=== PATIENT | male | born 1990 | race Caucasian/White ===

== ENCOUNTER 2016-11-08 07:25 | Emergency (ER) | payer BC ==
[~2016-11-08] VITALS: Ht 175.3 cm; Wt 105.4 kg
[~2016-11-08 07:25] MED LIST: ONDA1TAB16 PO; PERC5TAB12 PO
[2016-11-08 07:28] VITALS: BP 131/87; PULSE 56; RESP 16; TEMP 98.8; O2SAT 97
[2016-11-08] MEDS ORDERED: BACT800T5 PO (07:47)
--- NOTE | 2016-11-08 07:47 | PD ---
HPI Chief Complaint: Lump, Cyst, Hernia Time Seen by Provider: 07:44 Travel History International Travel<30 days: No Contact w/Intl Traveler<30days: No Traveled to known affect area: No History of Present Illness HPI 26-year-old male complains of a lump on the left axilla. Patient states that he started to notice a lump yesterday. Patient states that he squeezed some pus out of it this morning. Patient denies any other problem. Patient states that he has some burning pain at the area. Patient denies any pain radiation. Patient denies any fever chills. PFSH Past Medical History Cerebrovascular Accident: No Diabetes: No Diminished Hearing: No Musculoskeletal: Yes ("HERNIATED DISC NECK") Immunizations Current: Yes Myocardial Infarction: No Tetanus Vaccination: < 5 Years Influenza Vaccination: No ?: Not Past Surgical History Oral Surgery: Yes Other Surgery: Yes (sinus surgery) Social History Alcohol Use: No Tobacco Use: No Substance Use: No Allergies-Medications (Allergen,Severity, Reaction): Coded Allergies: Bee Sting (Verified Allergy, Severe, HIVES, 11/08/16) Reported Meds & Prescriptions Reported Meds & Active Scripts Active No Active Prescriptions or Reported Medications Review of Systems General / Constitutional: No: Fever Eyes: No: Visual changes HENT: No: Headaches Cardiovascular: No: Chest Pain or Discomfort Respiratory: No: Shortness of Breath Gastrointestinal: No: Abdominal Pain Genitourinary: No: Dysuria Musculoskeletal: No: Pain Skin: No Rash Neurologic: No: Weakness Psychiatric: No: Depression Endocrine: No: Polydipsia Hematologic/Lymphatic: No: Easy Bruising Physical Exam Narrative GENERAL: Well-nourished, well-developed patient. SKIN: Focused skin assessment warm/dry. HEAD: Normocephalic. EYES: No scleral icterus. No injection or drainage. NECK: Supple, trachea midline. No JVD or lymphadenopathy. CARDIOVASCULAR: Regular rate and rhythm without murmurs, gallops, or rubs. RESPIRATORY: Breath sounds equal bilaterally. No accessory muscle use. GASTROINTESTINAL: Abdomen soft, non-tender, nondistended. MUSCULOSKELETAL: No cyanosis, or edema. BACK: Nontender without obvious deformity. No CVA tenderness. Patient has a small papular lesion left axilla area. Mild redness associated with it. No induration and no discharge. Data Data Last Documented VS Vital Signs Date Time Temp Pulse Resp B/P Pulse Ox O2 Delivery O2 Flow Rate FiO2 11/08/16 07:28 98.8 56 16 131/87 97 MDM Medical Decision Making Medical Screen Exam Complete: Yes Emergency Medical Condition: Yes Differential Diagnosis Differential diagnosis including folliculitis, carbuncles, cellulitis, abscess. Narrative Course 26-year-old male with infected papular lesion left axilla. Diagnosis Primary Impression: Folliculitis Patient Instructions: General Instructions Additional Instructions: Bactrim DS as directed. Follow-up with personal physician. Return if worse. Med/Other Pt SpecificInfo: Prescription(s) given Scripts Sulfamethoxazole-Trimethoprim (Bactrim DS)800-160 Mg Tab1 Tab PO BID #14 TAB Prov:Merrick Guadalupe MD 11/08/16 Disposition: 01 DISCHARGE HOME Condition: Stable Merrick Guadalupe MD Nov 08, 2016 07:47
== END 2016-11-08 07:56 | disposition home or self-care (01) ==
LOC: PHED 07:25
DX: L73.9 Follicular disorder, unspecified (principal)
CPT/HCPCS: 99282

== ENCOUNTER 2017-01-12 09:20 | Emergency (ER) | payer BC ==
[~2017-01-12] VITALS: Ht 175.3 cm; Wt 106.0 kg
[~2017-01-12 09:20] MED LIST changes: +BACT800T5 PO; -ONDA1TAB16 PO; -PERC5TAB12 PO
[2017-01-12 09:26] VITALS: BP 152/92; PULSE 55; RESP 16; TEMP 98; O2SAT 99
[2017-01-12 09:47] LABS: BLOOD, URINE NEG (NEG); GLUCOSE,URINE NEG (NEG); KETONE, URINE NEG (NEG); NITRITE,URINE NEG (NEG); PH, URINE 5.5 (5.0-8.5)
[2017-01-12 09:58] LABS: COMMENT (UR) CULT NOT INDICATED; CULTURE IF INDICATED CULT NOT INDICATED; METHOD OF COLLECTION CLEAN CATCH; RBC, URINE 0-3 /hpf (0-3); SQUAMOUS EPITHELIAL CELL URINE 0-5 /hpf (0-5); URINE COLOR YELLOW (YELLW/STRAW)
[2017-01-12] MEDS ORDERED: SODIUM CHLOR 0.9% 1000 ML INJ 1,000 ML IV SCH (10:43)
[2017-01-12] MEDS ORDERED: ONDANSETRON HCL 4 MG/2 ML VIAL IVP ONE (10:45)
--- NOTE | 2017-01-12 10:47 | PD ---
HPI Chief Complaint: Abdominal Pain Time Seen by Provider: 10:38 Travel History International Travel<30 days: No Contact w/Intl Traveler<30days: No Traveled to known affect area: No History of Present Illness HPI 26-year-old male complains of right earache and abdominal pain with nausea. Patient states that he has congestion for the past several days. Patient started having right ear pain today and abdominal cramping with nausea today. Patient denies any vomiting or diarrhea. Patient denies any fever chills. Patient denies any chest pain or shortness of breath. Patient denies any dysuria or frequency. PFSH Past Medical History Hx Anticoagulant Therapy: No Cerebrovascular Accident: No Diabetes: No Diminished Hearing: No Musculoskeletal: Yes ("HERNIATED DISC NECK") Immunizations Current: Yes Myocardial Infarction: No Influenza Vaccination: No Past Surgical History Oral Surgery: Yes Other Surgery: Yes (sinus surgery) Social History Alcohol Use: No Tobacco Use: No Substance Use: No Allergies-Medications (Allergen,Severity, Reaction): Coded Allergies: Bee Sting (Verified Allergy, Severe, HIVES, 01/12/17) Reported Meds & Prescriptions Reported Meds & Active Scripts Active Review of Systems General / Constitutional: No: Fever Eyes: No: Visual changes HENT: Positive: Congestion, Earache, No: Headaches Cardiovascular: No: Chest Pain or Discomfort Respiratory: No: Shortness of Breath Gastrointestinal: Positive: Nausea, Abdominal Pain Genitourinary: No: Dysuria Musculoskeletal: No: Pain Skin: No Rash Neurologic: No: Weakness Psychiatric: No: Depression Endocrine: No: Polydipsia Hematologic/Lymphatic: No: Easy Bruising Physical Exam Narrative GENERAL: Well-nourished, well-developed patient. SKIN: Focused skin assessment warm/dry. HEAD: Normocephalic. EYES: No scleral icterus. No injection or drainage. TM: Patient has effusion behind the right TM. Left TM is clear. NECK: Supple, trachea midline. No JVD or lymphadenopathy. No meningismus CARDIOVASCULAR: Regular rate and rhythm without murmurs, gallops, or rubs. RESPIRATORY: Breath sounds equal bilaterally. No accessory muscle use. GASTROINTESTINAL: Abdomen soft, nondistended. Patient has mild diffuse tenderness over the abdomen. No rebound tenderness. No mass. MUSCULOSKELETAL: No cyanosis, or edema. BACK: Nontender without obvious deformity. No CVA tenderness. Neurologic exam normal. Data Data Last Documented VS Vital Signs Date Time Temp Pulse Resp B/P Pulse Ox O2 Delivery O2 Flow Rate FiO2 01/12/17 11:02 53 16 141/81 97 Room Air 01/12/17 09:26 98.0 Orders Urinalysis - C+S If Indicated (01/12/17 09:26) Complete Blood Count With Diff (01/12/17 10:43) Comprehensive Metabolic Panel (01/12/17 10:43) Lipase (01/12/17 10:43) Iv Access Insert/Monitor (01/12/17 10:43) Ecg Monitoring (01/12/17 10:43) Oximetry (01/12/17 10:43) Ondansetron Inj (Zofran Inj) (01/12/17 10:45) Sodium Chlor 0.9% 1000 Ml Inj (Ns 1000 M (01/12/17 10:43) Ketorolac Inj (Toradol Inj) (01/12/17 11:00) Labs Laboratory Tests Test 01/12/17 01/12/17 09:30 10:50 Urine Collection Type CLEAN CATCH Urine Color YELLOW Urine Turbidity CLEAR Urine pH 5.5 Urine Specific [place] 1.019 Urine Protein NEG mg/dL Urine Glucose (UA) NEG mg/dL Urine Ketones NEG mg/dL Urine Occult Blood NEG Urine Nitrite NEG Urine Bilirubin NEG Urine Leukocyte Esterase NEG Urine RBC 0-3 /hpf Urine Squamous Epithelial 0-5 /hpf Cells Microscopic Urinalysis Comment CULT NOT INDICATED Urine Collection Time 09:30 White Blood Count 11.9 TH/MM3 Red Blood Count 5.00 MIL/MM3 Hemoglobin 14.8 GM/DL Hematocrit 44.7 % Mean Corpuscular Volume 89.3 FL Mean Corpuscular Hemoglobin 29.6 PG Mean Corpuscular Hemoglobin 33.1 % Concent Red Cell Distribution Width 13.4 % Platelet Count 224 TH/MM3 Mean Platelet Volume 9.6 FL Neutrophils (%) (Auto) 79.2 % Lymphocytes (%) (Auto) 12.5 % Monocytes (%) (Auto) 6.8 % Eosinophils (%) (Auto) 0.9 % Basophils (%) (Auto) 0.6 % Neutrophils # (Auto) 9.4 TH/MM3 Lymphocytes # (Auto) 1.5 TH/MM3 Monocytes # (Auto) 0.8 TH/MM3 Eosinophils # (Auto) 0.1 TH/MM3 Basophils # (Auto) 0.1 TH/MM3 CBC Comment DIFF FINAL Differential Comment Sodium Level 142 MEQ/L Potassium Level 4.0 MEQ/L Chloride Level 106 MEQ/L Carbon Dioxide Level 27.0 MEQ/L Anion Gap 9 MEQ/L Blood Urea Nitrogen 13 MG/DL Creatinine 1.10 MG/DL Estimat Glomerular Filtration 80 ML/MIN Rate Random Glucose 105 MG/DL Calcium Level 9.0 MG/DL Total Bilirubin 0.4 MG/DL Aspartate Amino Transf 14 U/L (AST/SGOT) Alanine Aminotransferase 29 U/L (ALT/SGPT) Alkaline Phosphatase 62 U/L Total Protein 7.6 GM/DL Albumin 4.1 GM/DL Lipase 136 U/L MDM Medical Decision Making Medical Screen Exam Complete: Yes Emergency Medical Condition: Yes Interpretation(s) 11:59 AM. CBC with WBC 11.9. 79 neutrophil. CMP within normal limit. UA is negative. Differential Diagnosis Differential diagnosis including otitis externa, otitis media, gastritis, PUD, pancreatitis, cholecystitis, colitis, UTI, pyelonephritis. Narrative Course 26-year-old male complains of right ear pain abdominal cramping with nausea. Normal saline solution 1 L IV bolus. Zofran 4 mg IV. Diagnosis Primary Impression: Gastritis Qualified Code: K29.00 - Acute gastritis without hemorrhage, unspecified gastritis type Additional Impression: Acute effusion of right ear Patient Instructions: General Instructions Med/Other Pt SpecificInfo: Prescription(s) given Scripts Ondansetron Odt (Zofran Odt)4 Mg Tab4 Mg SL Q6HR PRN (Nausea/Vomiting) #10 TAB Ref 0 Prov:Merrick Guadalupe MD 01/12/17 Prednisone 20 Mg Tab20 Mg PO BID #10 TAB Ref 0 Prov:Merrick Guadalupe MD 01/12/17 Dicyclomine (Bentyl)10 Mg Cap10 Mg PO TID PRN (PAIN SCALE 1 TO 10) #15 CAP Ref 0 Prov:Merrick Guadalupe MD 01/12/17 Pantoprazole (Protonix)20 Mg Tab20 Mg PO DAILY #30 TAB Prov:Merrick Guadalupe MD 01/12/17 Disposition: 01 DISCHARGE HOME Condition: Stable Merrick Guadalupe MD Jan 12, 2017 10:47
[2017-01-12 11:00] LABS: AUTOMATED NEUTROPHIL # 9.4 TH/MM3 (1.8-7.7); BASOPHIL # 0.1 TH/MM3 (0-0.2); BASOPHIL % 0.6 % (0.0-2.0); EOSINOPHIL # 0.1 TH/MM3 (0-0.4); EOSINOPHIL % 0.9 % (0.0-4.0); HEMATOCRIT 44.7 % (39.0-51.0); LYMPH % 12.5 % (9.0-44.0); LYMPHOCYTE # 1.5 TH/MM3 (1.0-4.8); MEAN CELL VOLUME 89.3 FL (80.0-100.0); MEAN CORPUSCULAR HEMOGLOBIN 29.6 PG (27.0-34.0); MEAN CORPUSCULAR HGB CONC 33.1 % (32.0-36.0); MONO % 6.8 % (0.0-8.0); NEUT % 79.2 % (16.0-70.0); PLATELET COUNT 224 TH/MM3 (150-450); RED CELL DISTRIBUTION WIDTH 13.4 % (11.6-17.2); WHITE BLOOD COUNT 11.9 TH/MM3 (4.0-11.0)
[2017-01-12] MEDS ORDERED: KETOROLAC TROMETHAMINE 30 MG/ML (IVP) VIAL IV PUSH ONE (11:00)
[2017-01-12 11:01] VITALS: RESP 16; O2SAT 97
[2017-01-12 11:02] VITALS: BP 141/81; PULSE 53; RESP 16; O2SAT 97
[2017-01-12 11:06] LABS: CHLORIDE 106 MEQ/L (98-107); SODIUM (NA) 142 MEQ/L (136-145)
[2017-01-12 11:07] LABS: HEMO FLAGS DIFF FINAL
[2017-01-12 11:10] LABS: ANION GAP 9 MEQ/L (5-15)
[2017-01-12 11:11] LABS: BLOOD UREA NITROGEN 13 MG/DL (7-18)
[2017-01-12 11:13] LABS: ALT (GPT) 29 U/L (12-78); AST (GOT) 14 U/L (15-37); GLOMERULAR FILTRATION RATE 80 ML/MIN (>89)
[2017-01-12 11:15] LABS: TOTAL BILIRUBIN ADULT 0.4 MG/DL (0.2-1.0)
[2017-01-12 11:16] LABS: ALKALINE PHOSPHATASE 62 U/L (45-117)
[2017-01-12] MEDS ORDERED: DICY10 PO (12:04)
[2017-01-12] MEDS ORDERED: PANT20 PO (12:04)
[2017-01-12] MEDS ORDERED: PRED20 PO (12:04)
[2017-01-12] MEDS ORDERED: ZOFR4TAB3 SL (12:04)
[2017-01-12 12:14] VITALS: BP 133/71; PULSE 61; RESP 16; O2SAT 96
== END 2017-01-12 12:23 | disposition home or self-care (01) ==
LOC: PHED 09:20
DX: K29.00 Acute gastritis without bleeding (principal)
CPT/HCPCS: 80053; 81001; 83690; 85025; 96361; 96374; 96375; 99284; J1885; J2405; J7030

== ENCOUNTER 2017-11-28 21:39 | Emergency (ER) | payer BC ==
[~2017-11-28] VITALS: Ht 177.8 cm; Wt 97.7 kg
[~2017-11-28 21:39] MED LIST changes: -BACT800T5 PO; +DICY10 PO; +PANT20 PO; +PRED20 PO; +ZOFR4TAB3 SL
[2017-11-28 21:42] VITALS: BP 134/62; PULSE 58; RESP 18; TEMP 97.7; O2SAT 99
[2017-11-28] MEDS ORDERED: AMOXICILLIN 875 MG TAB PO ONE (22:00)
[2017-11-28] MEDS ORDERED: KETOROLAC TROMETHAMINE 60 MG/2 ML (IM) VIAL IM ONE (22:00)
[2017-11-28] MEDS ORDERED: AMOX875T PO (22:06)
[2017-11-28] MEDS ORDERED: IBUP1TAB7 PO (22:06)
--- NOTE | 2017-11-28 22:07 | PD ---
HPI Chief Complaint: ENT Complaint Time Seen by Provider: 21:54 Travel History International Travel<30 days: No Contact w/Intl Traveler<30days: No Traveled to known affect area: No History of Present Illness HPI The patient is a 27-year-old male that complains of pain in the right TMJ/right ear for 4 days. He states he had dental work 2 months ago. He denies any ear drainage and is not tender on the right ear. His pain is a 7/10, sharp pain and associated with any chewing movements. If the patient does not chew he does not feel any pain. PFSH Past Medical History Medical History: Denies Significant Hx Hx Anticoagulant Therapy: No Cerebrovascular Accident: No Diabetes: No Diminished Hearing: No Musculoskeletal: Yes ("HERNIATED DISC NECK") Immunizations Current: Yes Myocardial Infarction: No Tetanus Vaccination: < 5 Years Influenza Vaccination: No Past Surgical History Oral Surgery: Yes Other Surgery: Yes (sinus surgery) Social History Alcohol Use: No Tobacco Use: No Substance Use: No Allergies-Medications (Allergen,Severity, Reaction): Coded Allergies: bee venom protein (honey bee) (Unverified Allergy, Severe, HIVES, 03/17/17) Reported Meds & Prescriptions Reported Meds & Active Scripts Active Zofran Odt (Ondansetron Odt) 4 Mg Tab 4 Mg SL Q6HR PRN Prednisone 20 Mg Tab 20 Mg PO BID Bentyl (Dicyclomine HCl) 10 Mg Cap 10 Mg PO TID PRN Protonix (Pantoprazole Sodium) 20 Mg Tab 20 Mg PO DAILY Review of Systems Except as stated in HPI: all other systems reviewed are Neg Physical Exam Narrative GENERAL: Well-nourished, well-developed patient in slight apparent distress with his right TMJ type pain. His vital signs are normal. SKIN: Focused skin assessment warm/dry. HEAD: Normocephalic. EYES: No scleral icterus. No injection or drainage. NECK: Supple, trachea midline. No JVD or lymphadenopathy. CARDIOVASCULAR: Regular rate and rhythm without murmurs, gallops, or rubs. RESPIRATORY: Breath sounds equal bilaterally. No accessory muscle use. GASTROINTESTINAL: Abdomen soft, non-tender, nondistended. MUSCULOSKELETAL: No cyanosis, or edema. BACK: Nontender without obvious deformity. No CVA tenderness. ENT: The right tympanic membrane and canal are normal and there is no tenderness in the canal. The left tympanic membrane and canal are normal without any tenderness in the canal. The right TMJ is exquisitely tender but no erythema seen. There is no tenderness over the left TMJ. He does have some slight tenderness over the wisdom tooth and tooth #1. No drainable abscess is noted. Data Data Last Documented VS Vital Signs Date Time Temp Pulse Resp B/P (MAP) Pulse Ox O2 Delivery O2 Flow Rate FiO2 11/28/17 21:51 (86) 11/28/17 21:42 97.7 58 18 99 Orders Orders Ketorolac Inj (Toradol Inj) (11/28/17 22:00) Amoxicillin (Trimox) (11/28/17 22:00) [facility] Medical Decision Making Medical Screen Exam Complete: Yes Emergency Medical Condition: Yes Medical Record Reviewed: Yes Differential Diagnosis Otitis media, otitis externa, TMJ pain, dental pain, drainable dental abscess, non-drainable dental infection Narrative Course The patient has TMJ pain. He also has some tenderness over the tooth #1 but no drainable abscesses noted. Plan: The patient will be given Motrin 800 mg 3 times daily. He also is getting a prescription for Augmentin to take twice daily 875 mg. He will get a shot of Toradol here and an Augmentin tablet here. Med/Other Pt SpecificInfo: Prescription(s) given Scripts Amoxicillin (Amoxicillin) 875 Mg Tab 875 MG PO BID for Infection for 10 Days, #20 TAB 0 Refills Prov: Teja Woods MD 11/28/17 Ibuprofen (Ibuprofen) 800 Mg Tab 800 MG PO TID, #33 TAB 0 Refills Prov: Teja Woods MD 11/28/17 Disposition: 01 DISCHARGE HOME Condition: Stable Teja Woods MD Nov 28, 2017 22:07
== END 2017-11-28 22:23 | disposition home or self-care (01) ==
LOC: PHEFT 21:39
DX: M26.621 Arthralgia of right temporomandibular joint (principal); Z79.899 Other long term (current) drug therapy
CPT/HCPCS: 96372; 99283; J1885